=== PATIENT | male | born 2000 | race Caucasian/White ===

== ENCOUNTER 2020-01-23 10:03 | Emergency (ER) | payer OTHER, SELFPAY ==
[2020-01-23 10:13] VITALS: BP 142/71; PULSE 93; RESP 18; TEMP 36.7; O2SAT 100
--- NOTE | 2020-01-23 10:37 | ED.URI ---
HPI - URI/Sore Throat General Chief Complaint: Upper Respiratory Infection Stated Complaint: nausea/maldonado/diarrhea/cough/sore throat Time Seen by Provider: 01/23/20 10:37 Source: patient and RN notes reviewed History of Present Illness HPI Narrative: Patient is a 19-year-old male that presents the urgent care with complaints of sore throat, headache, nausea, body aches. Patient states that started a week ago and he has been using DayQuil and NyQuil for his symptoms. Patient denies any known fever. States that he has had intermittent diarrhea that was recently diagnosed with IBS. Patient has also recently changed his diet due to his diagnosis. No other acute complaints. No acute distress noted. Patient read the plan of care. Related Data Home Medications Medication Instructions Recorded Confirmed No Home Medications 01/23/20 01/23/20 Allergies Allergy/AdvReac Type Severity Reaction Status Date / Time No Known Allergies Allergy Unverified 01/23/20 10:12 Review of Systems Review of Systems: Narrative: CONSTITUTIONAL: Reports of intermittent chills EYES: Denies visual changes, redness, or discharge. ENT: Denies rhinorrhea, congestion, sore throat, or otalgia. CARDIOVASCULAR: Denies chest pain, palpitations, or edema. RESPIRATORY: Reports of nonproductive cough without dyspnea GASTROINTESTINAL: Reports of intermittent nausea and diarrhea likely due to IBS GENITOURINARY: Denies dysuria or hematuria. SKIN: Denies rash or itching. MUSCULOSKELETAL: Denies back pain, joint pain; reports of body aches NEUROLOGIC: Denies headache, numbness, or weakness. All other systems reviewed are negative, except as documented in HPI. PMFSH Comments At the time of my signature, I reviewed and agree with the nursing past medical, surgical, social, and family history. There is no relevant family history pertinent to the patient complaint. Exam Narrative: Exam Narrative: GENERAL: This is a well-nourished, well-developed patient, in no apparent distress. HEAD: normocephalic, atraumatic. EYES: PERRL. Sclera clear/white. Vision is grossly intact. EARS: External ears normal, auditory canals clear and without drainage, TMs normal without perforation. Hearing grossly intact. NOSE: External nose normal with no obvious nasal discharge, nares without redness, clear rhinorrhea. THROAT: Mucous membranes moist, posterior pharynx clear. Moderate postnasal drainage NECK: Neck supple, non-tender without lymphadenopathy CARDIOVASCULAR: Regular rate and rhythm without murmurs, gallops, or rubs. RESPIRATORY: Clear to auscultation. Breath sounds equal bilaterally. No wheezes, rales, or rhonchi. SKIN: warm, intact with no suspicious lesions or rash, good texture and turgor. NEURO: awake, alert, and oriented to person, place and time. There were no obvious focal neurologic abnormalities. EXTREMITIES: No clubbing, cyanosis, or edema. Course Vital Signs Vital signs: Vital Signs Temperature 98.0 F 01/23/20 10:13 Pulse Rate 93 01/23/20 10:13 Respiratory Rate 18 01/23/20 10:13 Blood Pressure 142/71 H 01/23/20 10:13 Pulse Oximetry 100 01/23/20 10:13 Temperature 98.0 F 01/23/20 10:13 Pulse Rate 93 01/23/20 10:13 Respiratory Rate 18 01/23/20 10:13 Blood Pressure 142/71 H 01/23/20 10:13 Pulse Oximetry 100 01/23/20 10:13 Reviewed?patient is informed that they may have pre-hypertension or hypertension based on a blood pressure reading in the department. I recommend the patient call the primary care provider listed on their discharge instructions or a physician of their choice this week to arrange follow-up for further evaluation of possible pre-hypertension or hypertension. MDM - URI/Sore Throat MDM Narrative Medical decision making narrative: Reviewed lab results with the patient. He is aware that he is negative for influenza. Advised the patient to continue treating upper respiratory virus symptoms with [id number] medication
== END 2020-01-23 10:54 | disposition home or self-care (01) ==
PROVIDERS: Emergency Provider Nurse Practitioner Family
DX: J06.9 Acute upper respiratory infection, unspecified (principal)
CPT/HCPCS: 87804; 99213; G0463

== ENCOUNTER 2020-02-10 15:10 | Emergency (ER) | payer OTHER, SELFPAY ==
[2020-02-10 15:18] VITALS: BP 116/66; PULSE 86; RESP 16; TEMP 36.4; O2SAT 100
--- NOTE | 2020-02-10 15:53 | ED.GENADULT ---
HPI - General Adult General Chief complaint: Upper Respiratory Infection Stated complaint: stuffy nose/cough History of Present Illness HPI narrative: Patient is a 19-year-old male presents to urgent care via POV for evaluation of sinus problems that began approximately 3 weeks ago. Additionally, patient reports sinus congestion, sinus pain, and productive cough. He states his sputum production is thick, small in quantity, and yellow in color. He also states, my teeth hurt . He took Zyrtec and Benadryl for 2 weeks without relief therefore discontinued this medication last week. Denies a history of COPD, bronchitis, cigarette smoking, asthma, vaping, and pneumonia. Denies alleviating and aggravating factors. Denies fever, chills, sweats, malaise, change in appetite, poor p.o. intake, recent weight loss, severe persistent headache, LOC, dizziness, lymphadenopathy, vision changes, ear pain/drainage, nasal drainage/congestion, difficulty swallowing, hoarseness, sore throat, abdominal pain, nausea, vomiting, diarrhea, hemoptysis, cyanosis, wheezing, shortness of breath, chest pain, heart palpitations/murmurs. Related Data Allergies Allergy/AdvReac Type Severity Reaction Status Date / Time No Known Allergies Allergy Verified 02/10/20 15:23 Review of Systems Review of Systems: All systems reviewed & are unremarkable except as noted in HPI and below PMFSH Comments I have reviewed and agree with the patient's past medical, surgical, social, and family hx as documented by the RN. There is no relevant family history pertinent to the presenting complaint. Exam Narrative: Exam Narrative: GENERAL: Well-appearing, well-nourished, and in no acute distress. HEAD: Normocephalic, atraumatic. Mild to moderate maxillary and sinus tenderness appreciated upon palpation. No facial swelling appreciated. EYES: PERRLA and EOMI. No evidence of erythema, swelling, or drainage. ENT: Bilateral external ears and ear canals normal. Bilateral TMs are normal.No TM perforation. Nares clear, no rhinorrhea or epistaxis. Bilateral turbinates with moderate swelling. Mucous membranes moist and pink. Uvula is midline without erythema and swelling. No evidence of petechial rash, cobblestoning, lesions, ulcers, erythema, swelling, exudates, peritonsillar abscess, tenting, or drooling. Breath odor and voice normal. NECK: Supple. No Lymphadenopathy or nuchal rigidity appreciated. CHEST: Bilateral lung zavala are clear to auscultation. No respiratory distress. No evidence of cough or pleuritic cp upon examination. HEART: Regular rate and rhythm. No murmur, gallop, or rub heard. EXTREMITIES: Normal range of motion. No edema. SKIN: Warm, dry, no rash. NEURO: No focal deficits. Alert and oriented x3. Course Vital Signs Vital signs: Vital Signs Temperature 97.5 F L 02/10/20 15:18 Pulse Rate 86 02/10/20 15:18 Respiratory Rate 16 02/10/20 15:18 Blood Pressure 116/66 02/10/20 15:18 Pulse Oximetry 100 02/10/20 15:18 Temperature 97.5 F L 02/10/20 15:18 Pulse Rate 86 02/10/20 15:18 Respiratory Rate 16 02/10/20 15:18 Blood Pressure 116/66 02/10/20 15:18 Pulse Oximetry 100 02/10/20 15:18 Medical Decision Making Differential Diagnosis Differential Diagnosis: Allergic rhinitis, ABRS, acute viral sinusitis, strep pharyngitis, nasopharyngitis, bronchitis, pneumonia, AOM, otitis externa, viral URI, influenza Medical Records Medical records reviewed: Yes I reviewed the patient's medical records. Vital Signs Vital Signs: Vital Signs Temperature 97.5 F L 02/10/20 15:18 Pulse Rate 86 02/10/20 15:18 Respiratory Rate 16 02/10/20 15:18 Blood Pressure 116/66 02/10/20 15:18 Pulse Oximetry 100 02/10/20 15:18 Temperature 97.5 F L 02/10/20 15:18 Pulse Rate 86 02/10/20 15:18 Respiratory Rate 16 02/10/20 15:18 Blood Pressure 116/66 02/10/20 15:18 Pulse Oximetry 100 02/10/20 15:18 Lab Data Lab resu
== END 2020-02-10 16:00 | disposition home or self-care (01) ==
PROVIDERS: Emergency Provider Nurse Practitioner Family
DX: J32.9 Chronic sinusitis, unspecified (principal)
CPT/HCPCS: 99213; G0463